=== PATIENT | born 1960 | race Caucasian/White ===

== ENCOUNTER → 2025-05-26 09:50 | Outpatient (BNVA) | payer BC, SELFPAY | PROVIDERS: Referring Provider Internal Medicine; Visit Provider Internal Medicine | DX: Z98.890 Other specified postprocedural states (principal); Z90.89 Acquired absence of other organs; E03.9 Hypothyroidism, unspecified; Z86.39 Personal history of other endocrine, nutritional and metabolic disease; I95.9 Hypotension, unspecified; R55 Syncope and collapse; Z85.850 Personal history of malignant neoplasm of thyroid | CPT/HCPCS: 36415; 82088; 82310; 82533; 83970; 84244; 84432; 84439; 84443; 84480; 86800 ==